=== PATIENT | female | born 1960 | race Caucasian/White ===

== ENCOUNTER → 2024-02-03 12:09 | Outpatient (REF) | payer MEDICARE, BC, SELFPAY | LOC: HWRAD 12:09 | PROVIDERS: ATTENDING PHYSICIAN Internal Medicine Critical Care Medicine; FAMILY PHYSICIAN Nurse Practitioner Family | DX: J84.9 Interstitial pulmonary disease, unspecified (principal) | CPT/HCPCS: 71046 ==

== ENCOUNTER → 2024-04-24 13:51 | Outpatient (REF) | payer MEDICARE, BC, SELFPAY | LOC: HWRAD 13:51 | PROVIDERS: ATTENDING PHYSICIAN Internal Medicine Critical Care Medicine; FAMILY PHYSICIAN Nurse Practitioner Family; REFERRING PHYSICIAN Otolaryngology | DX: J84.9 Interstitial pulmonary disease, unspecified (principal) | CPT/HCPCS: 70486; 71250 ==